=== PATIENT | male | born 1950 | race Caucasian/White ===

== ENCOUNTER 2021-04-22 01:49 | Emergency (ER) | payer BC ==
[~2021-04-22] VITALS: Ht 177.8 cm; Wt 83.9 kg
[2021-04-22] MEDS ORDERED: TADALAFIL20 M1 PO (01:59)
[2021-04-22] MEDS ORDERED: LISINOPRIL20 MG PO (01:59)
== END 2021-04-22 06:54 | disposition home or self-care (01) ==
LOC: ED 01:49
DX: T78.3XXA Angioneurotic edema, initial encounter (principal); T44.5X5A Adverse effect of predominantly beta-adrenoreceptor agonists, initial encounter; Z79.899 Other long term (current) drug therapy
CPT/HCPCS: 96374; 96375; 99282-25; J1200; J2930

== ENCOUNTER 2025-06-26 11:59 | Day surgery (SDC) | payer OTHER ==
[~2025-06-26] VITALS: Ht 177.8 cm; Wt 79.5 kg
[~2025-06-26 11:59] MED LIST: COMPLEX B-1000.4 MG PO; IBLOOD GLUCOSE TEST STRIP 1 EA TEST VI PRN; LACTATED RINGER'S 1,000 ML IV SCH; LIDOCAINE HCL 1% 5 ML SDV INJ ONE; LISINOPRIL20 MG PO; MIDAZOLAM HCL 5 MG/5 ML VIAL IV PRN; TADALAFIL20 M1 PO; VITAMIN C120 G1 PO; VITAMIN D310 MC1 PO; VITAMIN E100 UNI2 PO; fentaNYL citrate 100 MCG/2 ML VIAL IV PRN
[2025-06-26] MEDS ORDERED: TADALAFIL20 M1 PO (12:21)
[2025-06-26 12:22] VITALS: BP 149/94
[2025-06-26] MEDS ORDERED: fentaNYL citrate 100 MCG/2 ML VIAL ONE (13:54)
[2025-06-26] MEDS ORDERED: MIDAZOLAM HCL 5 MG/5 ML VIAL ONE (13:54)
--- NOTE | 2025-06-26 15:04 | NUR ---
06/26/25 1504 Veronika Peraza 1458: PT ARRIVES TO PACU AWAKE AND ALERT. NO COMPLAINTS OF PAIN OR NAUSEA. REPORT RECEIVED FROM FE[employer] MANAGER.
[2025-06-26 15:29] VITALS: BP 168/84
--- NOTE | 2025-06-27 15:06 | OR ---
[facility] [address], [place] [address] Signed DATE OF OPERATION: 06/26/2025 SURGEON: Ginger Alejandro MD PREOPERATIVE DIAGNOSIS: History of 13 polyps 2022 ([place], [place], Dr. Bloom). POSTOPERATIVE DIAGNOSES: 1. Extensive diverticulosis. 2. Polyps x4 (right colon and rectosigmoid). PROCEDURE: Total colonoscopy to cecum with cold snare polypectomy x1, cold morcellation polypectomy x1, and cold morcellation polypectomy x2, additional. ANESTHESIA: Intravenous sedation, fentanyl 150 mcg, and Versed 4 mg. INDICATION: This 74-year-old white man is a patient of Dr. Gee in [place], [place] at the [facility]. He underwent colonoscopy in [place] by Dr. Bloom in 2022 showing 13 adenomatous polyps, said to be. Pathology report confirms the polyps were found in the cecum and transverse colon and sigmoid hyperplastic polyps were noted as well. Based on a large number of polyps, a short-term colonoscopy was recommended. He has no current symptoms of bleeding, diarrhea or constipation and no known history of Haider syndrome, though he has not been specifically tested. He has no family history of colon cancer that he is aware of. He is admitted at this time to undergo colonoscopy. He understands the risk of bleeding, infection, and perforation. FINDINGS: The prep was quite good. Complete colonoscopy was undertaken of the cecum with full intubation of the cecum. There were numerous diverticula in the left and sigmoid and scattered areas more proximally. He had two small polyps of the right colon, one near the hepatic flexure, the other in the mid right colon. Both were excised completely. There were two polyps adjacent to each other in the rectosigmoid also excised. DESCRIPTION OF PROCEDURE: The patient was brought to the endoscopy suite and placed in lateral decubitus position, given intravenous sedation to the point of slurred speech and nystagmus. Digital rectal examination was normal. Full cardiopulmonary monitoring was maintained. Electronically Signed By: GINGER ALEJANDRO MD 06/27/25 1506 PATIENT NAME: JEREMIAH UMAÑA OPERATIVE REPORT DATE OF : 52 REPORT #: [id number] PHYSICIAN: GINGER ALEJANDRO MD PCP: OWEN ROBERSON MD REPORT IS CONFIDENTIAL AND NOT TO BE RELEASED WITHOUT AUTHORIZATION [facility] [address], [place] [address] Signed Olympus video colonoscope was passed in the rectum and manipulated throughout the colon noting numerous diverticula of the sigmoid and left colon. Scope was ultimately advanced to the cecum. The ileocecal valve and appendiceal orifice were normal. The scope was withdrawn. A subtle small sessile polyp was noted behind a fold for which cold snare excision was undertaken. Further withdrawal showed another small polyp excised with cold morcellation technique. Withdrawal of scope through the transverse and left colon showed no abnormality into the rectosigmoid where there were two very small polyps adjacent to each other, probably hyperplastic, both excised completely. Retroflexed view was otherwise normal. Scope was removed. The patient was taken to the recovery room in good condition. CONCLUDING DIAGNOSIS: Small polyps x4. PLAN: Recommend repeat colonoscopy in 3-5 years, sooner if symptoms should develop. He will return to the ongoing care of Dr. Gee in [facility]. MD BOB Chilel/MARISOL /[id number] cc: Dr. Gee Copies: ~ Electronically Signed By: GINGER ALEJANDRO MD 06/27/25 1506 PATIENT NAME: JEREMIAH UMAÑA OPERATIVE REPORT DATE OF : 52 REPORT #: [id number] PHYSICIAN: GINGER ALEJANDRO MD PCP: OWEN ROBERSON MD REPORT IS CONFIDENTIAL AND NOT TO BE RELEASED WITHOUT AUTHORIZATION
--- NOTE | 2025-06-28 15:19 | PATH ---
[facility] [address], [place] [address] Signed SPECIMEN(S): A ASCENDING POLYP SPECIMEN(S): B ASCENDING POLYP SPECIMEN(S): C RECTOSIGMOID POLYP SPECIMEN SOURCE: A. ASCENDING POLYP B. ASCENDING POLYP C. RECTOSIGMOID POLYP CLINICAL HISTORY: Multiple polyps, 2022. Post: Diverticulosis-polyps. A/B/C) polyps. FINAL PATHOLOGIC DIAGNOSIS: A. Colon, ascending/right, polypectomy: - Tubular adenoma B. Colon, ascending/right, polypectomy: - Tubular adenoma C. Colon, rectosigmoid, polypectomy: - Hyperplastic polyp [facility] MICROSCOPIC EXAMINATION: Histologic sections of all submitted blocks (or IHC as applicable) are digitally scanned and examined. These findings, together with the gross examination, support the pathologic diagnosis. GROSS DESCRIPTION: A. The specimen, labeled and designated "Verónica Moyer, 1.," and designated on the requisition "ascending/right polypectomy," is received in formalin and consists of one khan soft tissue fragment that is 0.4 cm in greatest dimension. The specimen is entirely submitted in (A1). B. The specimen, labeled and designated "Verónica Moyer, 2.," and designated on the requisition "ascending/right polypectomy," is received in formalin and consists of one khan soft tissue fragment that is 0.3 cm in greatest dimension. The specimen is entirely submitted in (B1). C. The specimen, labeled and designated "Verónica Moyer, 3., " and designated on the requisition "Rectosigmoid polypectomy," is received in formalin and consists of three khan soft tissue fragments that measure 0.2-0.3 cm in greatest dimension. The specimen is entirely submitted in (C1). FB (under the direct supervision of a pathologist) PATIENT NAME: JEREMIAH MOYER PATHOLOGY DATE OF : 52 REPORT #: [id number] PHYSICIAN: UYEN PATHOLOGY PCP: OWEN ROBERSON MD REPORT IS CONFIDENTIAL AND NOT TO BE RELEASED WITHOUT AUTHORIZATION [facility] [address], [place] [address] Signed The Gross Description was prepared using a voice recognition system. The report was reviewed for accuracy; however, sound-alike word errors, addition and/or deletions may occur. If there is any question about this report, please contact Client Services. ADDITIONAL NOTES: Immunohistochemical and/or in situ hybridization studies if performed in this case included appropriate positive controls that reacted as expected. This test was developed and its performance characteristics determined by [facility]. It has not been cleared or approved by the U.S. Food and Drug Administration. The FDA has determined that such clearance or approval is not necessary. This test is used for clinical purposes. It should not be regarded as investigational or for research. [facility] is certified under the Clinical Laboratory Improvement Amendments of 1988 (CLIA) as qualified to perform high complexity clinical laboratory testing. PERFORMING LABORATORY: Technical component was performed by [facility], [address] [place] [id number] (CLIA# [id number]). Professional interpretation was performed by [facility], [address] [place] [phone] (CLIA#: [id number]). Diagnostician: Jak Hernandez DO Pathologist Electronically Signed 06/28/2025 Copies: ~ PATIENT NAME: CHASIDYJEREMIAH ArmentaLAS PATHOLOGY DATE OF : 52 REPORT #: [id number] PHYSICIAN: UYEN DAVISON PCP: OWEN ROBERSON MD REPORT IS CONFIDENTIAL AND NOT TO BE RELEASED WITHOUT AUTHORIZATION
== END 2025-06-26 15:36 | disposition home or self-care (01) ==
LOC: DS 11:59 → OPS 11:59 → DS 14:00 → OPS 14:00
PROVIDERS: ATTEND Surgery
PROC: 0DBL8ZX Excision of Transverse Colon, Via Natural or Artificial Opening Endoscopic, Diagnostic (ICD-10-PCS; 2025-06-26)
PROC: 0DBN8ZX Excision of Sigmoid Colon, Via Natural or Artificial Opening Endoscopic, Diagnostic (ICD-10-PCS; 2025-06-26)
PROC: 0DBF8ZX Excision of Right Large Intestine, Via Natural or Artificial Opening Endoscopic, Diagnostic (ICD-10-PCS; principal; 2025-06-26 14:00)
DX: Z12.11 Encounter for screening for malignant neoplasm of colon (principal); D12.2 Benign neoplasm of ascending colon; K63.5 Polyp of colon; K57.30 Diverticulosis of large intestine without perforation or abscess without bleeding; I10 Essential (primary) hypertension; F17.210 Nicotine dependence, cigarettes, uncomplicated; Z86.0101 Personal history of adenomatous and serrated colon polyps; Z85.46 Personal history of malignant neoplasm of prostate; Z88.8 Allergy status to other drugs, medicaments and biological substances
CPT/HCPCS: 88305; 99153; G0500; J2250; J3010; J7121